=== PATIENT | male | born 1990 | race Caucasian/White ===

== ENCOUNTER 2018-06-13 22:15 | Emergency (ER) | payer OTHER ==
[~2018-06-13] VITALS: Ht 190.5 cm; Wt 134.1 kg
[2018-06-13] MEDS ORDERED: PERTUSS(ACELL),DIPH,TET VAC/PF 0.5 ML VIAL IM ONE (23:45)
[2018-06-14 00:39] VITALS: BP 116/64
== END 2018-06-14 01:12 | disposition home or self-care (01) ==
LOC: EMS 22:16
DX: S61.214A Laceration without foreign body of right ring finger without damage to nail, initial encounter (principal); W25.XXXA Contact with sharp glass, initial encounter; Y93.89 Activity, other specified; Y92.89 Other specified places as the place of occurrence of the external cause; Y99.8 Other external cause status
CPT/HCPCS: 12001; 90471; 90715